=== PATIENT | male | born 1970 | race Caucasian/White ===

== ENCOUNTER 2018-06-14 19:07 | Inpatient (IN) | payer MEDICAID ==
[2018-06-13 22:40] VITALS: BP 148/84
[~2018-06-14] VITALS: Ht 177.8 cm; Wt 72.6 kg
--- NOTE | 2018-06-14 19:20 | NUR ---
PT BIBSELF COMPLAINING OF LEFT SIDED CHEST PAIN RADIATING TO BACK FOR 1 WEEK. PT STATES IT HAS BEEN GETTING WORSE WITH CAFFIENE. PT TOOK ASA 81MG AN HOUR AGO AND STATES HIS PAIN IS BETTER. PT DENIES ABDOMINAL PAIN, SOB, NVD. PT AAOX4. RESPIRATIONS EVEN AND UNLABORED. SKIN WARM AND INTACT. NO ACUTE DISTRESS NOTED AT THIS TIME. PT AMBULATORY TO ER BED 4. PLACED IN GOWN AND ON CONTINUOUS DESIGN ENGINEER PRODUCTS. WAITING MD EVALUATION
--- NOTE | 2018-06-14 19:30 | NUR ---
MD AT BEDSIDE FOR EVALUATION
--- NOTE | 2018-06-14 19:40 | NUR ---
IV INITIATED RIGHT AC 20G. LABS DRAWN FROM SITE. PLASTIC BATTERY ASSEMBLER AT BEDSIDE FOR COLLECTION. IV INTACT AND PATENT. PLACED ON SALINE LOCK.
[2018-06-14 19:54] LABS: BASOPHILS # (AUTO) 0.1 /CMM (0.0-0.2); BASOPHILS % (AUTO) 1.3 % (0.0-2.0); EOSINOPHILS % (AUTO) 1.3 % (0.0-6.0); HEMATOCRIT 54 % (39-51); LYMPHOCYTES # (AUTO) 2.5 /CMM (0.8-4.8); LYMPHOCYTES % (AUTO) 32.3 % (20.0-44.0); MEAN CORPUSCULAR HGB CONC 33 g/dl (31.0-36.0); MEAN CORPUSCULAR VOLUME 92 fL (80-96); MONOCYTES # (AUTO) 0.3 /CMM (0.1-1.30); MONOCYTES % (AUTO) 3.8 % (2.0-12.0); NEUTROPHILS # (AUTO) 4.8 /CMM (1.8-8.9); NEUTROPHILS % (AUTO) 61.3 % (43.0-81.0); PLATELET COUNT (AUTO) 282 /CMM (150-450); RED BLOOD CELL COUNT(AUTO) 5.88 MIL/uL (4.5-6.0); WHITE BLOOD COUNT (AUTO) 7.8 K/uL (4.3-11.0)
[2018-06-14 20:05] LABS: CALCIUM, SERUM 9.3 mg/dL (8.5-10.1); CARBON DIOXIDE 27 mmol/L (21-32); CHLORIDE 103 mmol/L (98-107); CREATININE 1.8 mg/dL (0.6-1.3); GLUCOSE 108 mg/dL (74-106); POTASSIUM 4.3 mmol/L (3.5-5.1); SODIUM SERUM 140 mmol/L (136-145); UREA NITROGEN, BLOOD 18 mg/dL (7-18)
[2018-06-14 20:08] LABS: INR 0.98 (0.85-1.15)
[2018-06-14 20:12] LABS: TROPONIN I < 0.017 ng/mL (0.00-0.056)
[2018-06-14 20:19] LABS: B-TYPE NATRIURETIC PEPTIDE 9 PG/ML (0-125)
[2018-06-14] MEDS ORDERED: AMLODIPINE BESYLATE 5 MG TABLET PO ONE (21:00)
[2018-06-14] MEDS ORDERED: AMLODIPINE BESYLATE 5 MG TABLET ONE (21:07)
--- NOTE | 2018-06-14 21:15 | NUR ---
GAVE REPORT TO HERIBERTO CRISTOBAL FOR [facility]
--- NOTE | 2018-06-14 22:33 | NUR ---
TRANSFERRED PT PER [facility] PROTOCOL
--- NOTE | 2018-06-14 22:40 | NUR ---
RN NOTES RECEIVED PT. FROM ER WITH COMPLAINED OF CHEST PAIN,. PT. IS /OX4, AMBULATORY, SR ON TELE MONITOR HR-84, DENIES PAIN, NO SOB, .. PT ADMITTED THAT HE USED POT (CANNABIS ). HE JUST STOPPED ONE WEEK AGO, ADMISSION INSTRUCTION WAS RENDERED, CALL LIGHT WITHIN REACH, [id number], CONTINUE TO MONITOR
[2018-06-14 22:45] VITALS: BP 148/84
[2018-06-14] MEDS ORDERED: MAG HYDROX/AL HYDROX/SIMETH 30 ML UDC PO PRN (23:00)
[2018-06-14] MEDS ORDERED: NITROGLYCERIN PACKET 1 GM PACKET TD PRN (23:00)
[2018-06-14] MEDS ORDERED: ONDANSETRON HCL/PF 4 MG/2 ML VIAL IVP PRN (23:00)
[2018-06-14] MEDS ORDERED: MORPHINE SULFATE INJ 2 MG/ML DISP.SYRIN IV PRN (23:00)
[2018-06-14] MEDS ORDERED: ACETAMINOPHEN 325 MG TABLET PO PRN (23:00)
[2018-06-14] MEDS ORDERED: DOCUSATE SODIUM 100 MG CAPSULE PO PRN (23:00)
[2018-06-14] MEDS ORDERED: NITROGLYCERIN 0.4 MG/TAB BOTTLE SL PRN (23:00)
[2018-06-14] MEDS ORDERED: IV NS 0.9% 500 ML IV PRN (23:00)
[2018-06-15] VITALS: BP 144/86
[2018-06-15 00:23] VITALS: BP 142/86
[2018-06-15 04:00] VITALS: BP 132/79
[2018-06-15 04:30] VITALS: BP 132/79
--- NOTE | 2018-06-15 06:30 | NUR ---
RN NOTES AWAKE, DENIES PAIN, NO SOB, MORNING CARE RENDERED, PT. NEEDS ATTENDED
[2018-06-15 06:43] LABS: BASOPHILS # (AUTO) 0.1 /CMM (0.0-0.2); BASOPHILS % (AUTO) 0.9 % (0.0-2.0); EOSINOPHILS % (AUTO) 2.3 % (0.0-6.0); HEMATOCRIT 50 % (39-51); HEMOGLOBIN 17.1 g/dL (13.5-17.5); LYMPHOCYTES # (AUTO) 3.6 /CMM (0.8-4.8); LYMPHOCYTES % (AUTO) 38.4 % (20.0-44.0); MEAN CORPUSCULAR HGB CONC 34 g/dl (31.0-36.0); MEAN CORPUSCULAR VOLUME 94 fL (80-96); MONOCYTES # (AUTO) 0.5 /CMM (0.1-1.30); NEUTROPHILS % (AUTO) 53.4 % (43.0-81.0); PLATELET COUNT (AUTO) 285 /CMM (150-450); RED BLOOD CELL COUNT(AUTO) 5.32 MIL/uL (4.5-6.0); WHITE BLOOD COUNT (AUTO) 9.4 K/uL (4.3-11.0)
[2018-06-15 07:14] LABS: ALBUMIN 3.4 g/dL (3.4-5.0); BILIRUBIN,TOTAL 0.6 mg/dL (0.2-1.0); CALCIUM, SERUM 9.3 mg/dL (8.5-10.1); CREATININE 1.4 mg/dL (0.6-1.3); MAGNESIUM 2.2 mg/dL (1.8-2.4); PHOSPHORUS 3.9 mg/dL (2.5-4.9); POTASSIUM 4.2 mmol/L (3.5-5.1)
--- NOTE | 2018-06-15 07:30 | NUR ---
SPECIAL EDUCATION SUPERVISOR OPENING NOTES PATIENT RECEIVED AWAKE IN BED IN NO ACUTE SIGNS OF DISTRESS. HOB ELEVATED. A/O X4. ABLE TO VERBALIZED NEEDS, DENIES PAIN OR ANY DISCOMFORTS AT THIS TIME. ON ROOM AIR, BREATHING EVEN AND UNLABORED. PT ON TELE-MONITORING WITH CURRENT READING OF SR AND HR OF 65, NO C/O CARDIAC DISTRESS OR CHEST PAIN VOICED. IV ACCESS ON RIGHT RAC 20G PATENT AND INTACT, IVF OF NS @ 50ML/HR INFUSING WELL, NO S/S OF INFILTRATIONS NOTED. SAFETY MEASURES IN PLACE. BED IN LOW LOCKED POSITION WITH SR UP X2. CALL LIGHT WITHIN REACH. WILL CONTINUE TO MONITOR PATIENT.
[2018-06-15 08:00] VITALS: BP 127/87
[2018-06-15 08:07] LABS: THYROID STIMULATING HORMONE 2.293 uIU/mL (0.358-3.74)
--- NOTE | 2018-06-15 08:24 | NUR ---
RN NOTES PATIENT SEEN AND EVALUATED BY DR DAWKINS AND DISCONTINUED PT ON TELEMONITORING. WILL CONTINUE TO MONITOR
[2018-06-15] MEDS ORDERED: ASPIRIN 325 MG TABLET PO SCH (09:00)
--- NOTE | 2018-06-15 17:32 | NUR ---
RN DISCHARGED NOTES PATIENT DISCHARGED HOME IN STABLE CONDITION. A/O X4. ABLE TO MAKE NEEDS KNOWN. ALL NEEDS AND CARE ATTENDED WELL. V/S TAKEN AND RECORDED. SKIN IS INTACT. ALL BELONGINGS ACCOUNTED AND SIGNED FORM. WRIST BAND AND IV ACCESS REMOVED WITH NO BLEEDING NOTED. PT REFUSED FLU NAD PNA VACCINES DESPITE EXPLAINING RISKS AND BENEFITS. HEALTH TEACHINGS/DISCHARGED INSTRUCTIONS GIVEN, SAME EDUCATED ON SMOKING CESSATION AND VERBALIZED UNDERSTANDING. PT LEFT UNIT AT 1725 AMBULATORY AND ACCOMPANIED BY ME TO THE LOBBY. PT IN NO ACUTE SIGNS OF DISTRESS. CHARGE NURSE AWARE OF DISCHARGE.
[2018-06-15] MEDS ORDERED: SIMVASTATIN 40 MG TABLET PO SCH (22:00)
== END 2018-06-15 17:25 | disposition home or self-care (01) | DRG 203 ==
LOC: ER 19:14 → TELE 22:06 → MED 06-15 09:41
PROVIDERS: ADMIT Registered Nurse; ATTEND Registered Nurse
DX: M94.0 Chondrocostal junction syndrome [Tietze] (principal); N17.0 Acute kidney failure with tubular necrosis; E86.0 Dehydration; F41.9 Anxiety disorder, unspecified; I10 Essential (primary) hypertension; R73.9 Hyperglycemia, unspecified; Z82.49 Family history of ischemic heart disease and other diseases of the circulatory system
CPT/HCPCS: 36415; 71045-TC; 80048-TC; 80053-TC; 80061-TC; 83735-TC; 83880; 84100-TC; 84443-TC; 84484-TC; 85025-TC; 85730-TC; 87081-TC; 93307-TC; A4606; G0378; J7040; Z7610